=== PATIENT | female | born 1970 | race Caucasian/White ===

== ENCOUNTER 2016-04-23 08:21 | Emergency (ER) | payer SELFPAY ==
[~2016-04-23] VITALS: Ht 160 cm; Wt 124.0 kg
[~2016-04-23 08:21] MED LIST: BUPR100CR PO; CIPRHC10A RIGHT EAR; GLUCTAB PO; LEVO100T4 PO; LISI-360 PO; VITA400C58 PO; VITA500T83 PO; ZOFR4TAB3 SL
[2016-04-23 08:32] VITALS: BP 134/91; PULSE 86; RESP 18; TEMP 98.6; O2SAT 96
[2016-04-23 08:40] VITALS: BP 159/95; PULSE 83; RESP 18; O2SAT 96
[2016-04-23] MEDS ORDERED: LEVO100T5 PO (08:54)
[2016-04-23] MEDS ORDERED: VITA10003 PO (08:54)
[2016-04-23] MEDS ORDERED: GABA300C5 PO (08:54)
[2016-04-23] MEDS ORDERED: METF500T PO (08:54)
[2016-04-23] MEDS ORDERED: AMIT50TA3 PO (08:54)
[2016-04-23] MEDS ORDERED: LISI-515 PO (08:54)
[2016-04-23] MEDS ORDERED: LIDOCAINE HCL 1% 50 ML VIAL INFIL ONE (09:00)
--- NOTE | 2016-04-23 09:06 | PD ---
HPI Chief Complaint: Cold / Flu Symptoms Time Seen by Provider: 08:42 Travel History International Travel<30 days: No Contact w/Intl Traveler<30days: No Traveled to known affect area: No History of Present Illness HPI 45-year-old female with history of diabetes, presents to the ER today with 1 week history of cough, sore throat, congestion, body aches, nausea, and diarrhea. She states that her parents had similar symptoms as well. She has not had a fever Now. In Addition, She Has Noticed Swelling around Her Left Pinky Finger Nail Area. She States This Started for Several Days. She Denies Any Other Issues. Modifying Factors: None Associated Signs & Symptoms: Cough, cold symptoms, congestion, body aches, nausea, diarrhea. Left Pinky finger swelling. Risk Factors: Sick contacts PFSH Past Medical History Depression: Yes Cardiovascular Problems: Yes High Cholesterol: Yes Diabetes: Yes Patient Takes Glucophage: Yes Hypertension: Yes Thyroid Disease: Yes Influenza Vaccination: No ?: Not LMP: 04/04/16 Ectopic : Yes Past Surgical History Gynecologic Surgery: Yes (CERVICAL POLYPS REMOVED) Social History Alcohol Use: No Tobacco Use: Yes (1ppd) Substance Use: No Allergies-Medications (Allergen,Severity, Reaction): Coded Allergies: No Known Allergies (Unverified , 10/20/15) Reported Meds & Prescriptions Reported Meds & Active Scripts Active Reported Amitriptyline (Amitriptyline HCl) 50 Mg Tab 50 Mg PO HS Vitamin D-3 (Cholecalciferol) 1,000 Unit Tab 1,000 Units PO DAILY Levothyroxine (Levothyroxine Sodium) 100 Mcg Tab 100 Mcg PO DAILY Gabapentin 300 Mg Cap 300 Mg PO TID Lisinopril 20 Mg Tab 20 Mg PO DAILY Metformin (Metformin HCl) 500 Mg Tab 500 Mg PO BIDPC With meals Review of Systems Except as stated in HPI: all other systems reviewed are Neg Physical Exam Narrative GENERAL: Well-nourished, well-developed middle age white female patient in no acute distress. SKIN: Warm and dry. HEAD: Normocephalic. EYES: No scleral icterus. No injection or drainage. ENT: Mucosa pink and moist. Mild erythema with no exudates. No uvular edema. No uvular, palatal, or tonsillar deviation. Airway patent. NECK: Supple, trachea midline. CARDIOVASCULAR: Regular rate and rhythm without murmurs, gallops, or rubs. RESPIRATORY: Breath sounds equal bilaterally. No accessory muscle use. GASTROINTESTINAL: Abdomen soft, non-tender, nondistended. MUSCULOSKELETAL: No cyanosis, or edema. BACK: Nontender without obvious deformity. No CVA tenderness. Left fifth digit: Mild edema and erythema notable next to the nail of the fingertip, tender to palpation. Questionable underlying fluctuance. Data Data Last Documented VS Vital Signs Date Time Temp Pulse Resp B/P Pulse Ox O2 Delivery O2 Flow Rate FiO2 04/23/16 08:54 Room Air 04/23/16 08:40 83 18 159/95 96 04/23/16 08:32 98.6 Orders Influenzae A/B Antigen (04/23/16 08:42) Lidocaine 1% Inj (50 Ml) (Xylocaine 1% I (04/23/16 09:00) Chest, Single Ap (04/23/16 09:13) MDM Medical Decision Making Medical Screen Exam Complete: Yes Emergency Medical Condition: Yes Medical Record Reviewed: Yes Interpretation(s) CHEST X-RAY: No infiltrate, pneumothorax or mediastinal widening. Differential Diagnosis URI versus bronchitis versus influenza versus pneumonia, paronychial abscess versus cellulitis Narrative Course Flu test is negative. Chest x-ray did not show any signs of acute pneumonia. I suspect that the patient has an underlying viral syndrome. IV was done on her fifth digit without significant pus. My plan would be to put her on antibiotics for this issue. In addition, we'll give her symptomatic relief for her viral syndrome. Return for any worsening in symptoms as needed. The plan was discussed with her and she states understanding. Diagnosis Primary Impression: CELLULITIS OF LEFT FINGER Additional Impression: Viral syndrome Med/Other Pt SpecificInfo: Prescription(s) given Scripts Benzonatate (Tessalon Perles)100 Mg [id number] Mg PO TID PRN (COUGH) #15 CAP Ref 0 Prov:Angelica Shepherd MD 04/23/16 Ibuprofen (Motrin Ib)200 Mg [id number] Mg PO Q6H PRN (PAIN SCALE 1 TO 10) #20 TAB Ref 0 Prov:Angelica Shepherd MD 04/23/16 Cephalexin (Keflex)500 Mg [id number] Mg PO Q6H 7 Days Ref 0 Prov:Angelica Shepherd MD 04/23/16 Disposition: 01 DISCHARGE HOME Condition: Stable Angelica Shepherd MD Apr 23, 2016 09:06
--- NOTE | 2016-04-23 09:49 | RADHPO ---
EXAM DATE/TIME: 04/23/2016 09:29 [facility] COMPARISON: No previous studies available for comparison. INDICATIONS : Cough, fever, body aches. MEDICAL HISTORY : Hypertension. Diabetes mellitus type II. SURGICAL HISTORY : None. ENCOUNTER: Initial ACUITY: 1 week PAIN SCORE: 0/10 LOCATION: Bilateral chest FINDINGS: A single view of the chest demonstrates the lungs to be symmetrically aerated without evidence of mas s, infiltrate or effusion. The cardiomediastinal contours are unremarkable. Osseous structures are intact. CONCLUSION: No acute disease. Dl Oliva MD on April 23, 2016 at 9:48 Board Certified Radiologist. This report was verified electronically.
[2016-04-23] MEDS ORDERED: BENZ100 PO (09:55)
[2016-04-23] MEDS ORDERED: CEPH-460 PO (09:55)
[2016-04-23] MEDS ORDERED: MOTR200T4 PO (09:55)
[2016-04-23 10:18] VITALS: BP 128/88
== END 2016-04-23 10:19 | disposition home or self-care (01) ==
LOC: PHED 08:21
DX: L03.012 Cellulitis of left finger (principal); B34.9 Viral infection, unspecified
CPT/HCPCS: 10060; 71010; 87804

== ENCOUNTER 2016-11-22 13:40 | Emergency (ER) | payer SELFPAY ==
[~2016-11-22] VITALS: Ht 160 cm; Wt 116.0 kg
[~2016-11-22 13:40] MED LIST changes: +AMIT50TA3 PO; +BENZ100 PO; -BUPR100CR PO; +CEPH-460 PO; -CIPRHC10A RIGHT EAR; +GABA300C5 PO; -GLUCTAB PO; -LEVO100T4 PO; +LEVO100T5 PO; -LISI-360 PO; +LISI-515 PO; +METF500T PO; +MOTR200T4 PO; +VITA10003 PO; -VITA400C58 PO; -VITA500T83 PO; -ZOFR4TAB3 SL
[2016-11-22 13:52] VITALS: BP 135/63; PULSE 92; RESP 14; TEMP 98.2; O2SAT 96
[2016-11-22] MEDS ORDERED: PROCHLORPERAZINE INJ 10 MG/2 ML VIAL IV PUSH ONE (15:30)
[2016-11-22] MEDS ORDERED: SODIUM CHLOR 0.9% 1000 ML INJ 1,000 ML IV ONE (15:30)
[2016-11-22] MEDS ORDERED: KETOROLAC TROMETHAMINE 30 MG/ML (IVP) VIAL IV PUSH ONE (15:30)
[2016-11-22] MEDS ORDERED: diphenhydrAMINE HCL 50 MG/ML VIAL IV PUSH ONE (15:30)
[2016-11-22 15:57] LABS: AUTOMATED NEUTROPHIL # 6.2 TH/MM3 (1.8-7.7); BASOPHIL % 0.3 % (0.0-2.0); EOSINOPHIL # 0.3 TH/MM3 (0-0.4); EOSINOPHIL % 2.5 % (0.0-4.0); HEMATOCRIT 46.1 % (35.0-46.0); HEMO FLAGS DIFF FINAL; LYMPH % 31.9 % (9.0-44.0); LYMPHOCYTE # 3.4 TH/MM3 (1.0-4.8); MEAN CELL VOLUME 95.8 FL (80.0-100.0); MEAN CORPUSCULAR HEMOGLOBIN 31.8 PG (27.0-34.0); MEAN CORPUSCULAR HGB CONC 33.1 % (32.0-36.0); MONO % 6.7 % (0.0-8.0); NEUT % 58.6 % (16.0-70.0); PLATELET COUNT 261 TH/MM3 (150-450); RED BLOOD COUNT 4.82 MIL/MM3 (4.00-5.30); WHITE BLOOD COUNT 10.6 TH/MM3 (4.0-11.0)
[2016-11-22] MEDS ORDERED: NAPR500T PO (16:06)
[2016-11-22 16:07] LABS: CHLORIDE 106 MEQ/L (98-107); POTASSIUM 3.8 MEQ/L (3.5-5.1); SODIUM (NA) 140 MEQ/L (136-145)
--- NOTE | 2016-11-22 16:07 | PD ---
HPI Chief Complaint: Headache Time Seen by Provider: 15:23 Travel History International Travel<30 days: No Contact w/Intl Traveler<30days: No Traveled to known affect area: No History of Present Illness HPI This is a 45-year-old female who presents to the emergency department with 2 weeks of headache, intermittent, nagging, affecting the base of her neck and her forehead associated with generalized malaise, body aches and fatigue. She says she's had migraines in the past but her headaches are usually last this long. She feels generally nauseous. She hasn't vomited. She denies any difficulty walking or talking. She denies any fevers or chills. She has had some dysuria which she's noticed for several weeks. She doesn't remember the exact time of onset of the headache and says it came on gradually. PFSH Past Medical History Depression: Yes Cardiovascular Problems: Yes High Cholesterol: Yes Diabetes: Yes Patient Takes Glucophage: Yes Hypertension: Yes Thyroid Disease: Yes ?: Unknown LMP: 09/2016 Ectopic : Yes Past Surgical History Gynecologic Surgery: Yes (CERVICAL POLYPS REMOVED) Social History Alcohol Use: No Tobacco Use: Yes (1ppd) Substance Use: No Allergies-Medications (Allergen,Severity, Reaction): Coded Allergies: No Known Allergies (Unverified , 10/20/15) Reported Meds & Prescriptions Reported Meds & Active Scripts Active Reported Levothyroxine (Levothyroxine Sodium) 100 Mcg Tab 100 Mcg PO DAILY Gabapentin 300 Mg Cap 300 Mg PO TID PRN Lisinopril 20 Mg Tab 20 Mg PO DAILY Metformin (Metformin HCl) 500 Mg Tab 500 Mg PO BIDPC With meals Review of Systems Except as stated in HPI: all other systems reviewed are Neg Physical Exam Narrative GENERAL:Well appearing, no acute distress SKIN: Focused skin assessment warm and dry. HEAD: Atraumatic. Normocephalic. EYES: Pupils equal and round. No injection or drainage. ENT: Moist mucous membranes NECK: Trachea midline. CARDIOVASCULAR: Regular rate and rhythm. No murmur appreciated. RESPIRATORY: Clear to auscultation. Breath sounds equal bilaterally. GASTROINTESTINAL: Abdomen soft, non-tender, nondistended. MUSCULOSKELETAL: No obvious deformities. NEUROLOGICAL: Awake and alert. No obvious cranial nerve deficits. No dysarthria or aphasia. No upper or lower extremity drift. No upper extremity ataxia. Visual mckinney intact. PSYCHIATRIC: Appropriate mood and affect; insight and judgment normal. Data Data Last Documented VS Vital Signs Date Time Temp Pulse Resp B/P (MAP) Pulse Ox O2 Delivery O2 Flow Rate FiO2 11/22/16 13:52 98.2 92 14 135/63 (87) 96 Room Air Orders Orders Complete Blood Count With Diff (11/22/16 15:29) Comprehensive Metabolic Panel (11/22/16 15:29) Urinalysis - C+S If Indicated (11/22/16 15:29) Ed Urine Pregnancytest Poc (11/22/16 15:29) Sodium Chlor 0.9% 1000 Ml Inj (Ns 1000 M (11/22/16 15:30) Ketorolac Inj (Toradol Inj) (11/22/16 15:30) Prochlorperazine Inj (Compazine Inj) (11/22/16 15:30) Diphenhydramine Inj (Benadryl Inj) (11/22/16 15:30) Labs Laboratory Tests Test 11/22/16 15:45 White Blood Count 10.6 TH/MM3 Red Blood Count 4.82 MIL/MM3 Hemoglobin 15.3 GM/DL Hematocrit 46.1 % Mean Corpuscular Volume 95.8 FL Mean Corpuscular Hemoglobin 31.8 PG Mean Corpuscular Hemoglobin Concent 33.1 % Red Cell Distribution Width 14.0 % Platelet Count 261 TH/MM3 Mean Platelet Volume 8.2 FL Neutrophils (%) (Auto) 58.6 % Lymphocytes (%) (Auto) 31.9 % Monocytes (%) (Auto) 6.7 % Eosinophils (%) (Auto) 2.5 % Basophils (%) (Auto) 0.3 % Neutrophils # (Auto) 6.2 TH/MM3 Lymphocytes # (Auto) 3.4 TH/MM3 Monocytes # (Auto) 0.7 TH/MM3 Eosinophils # (Auto) 0.3 TH/MM3 Basophils # (Auto) 0.0 TH/MM3 CBC Comment DIFF FINAL Differential Comment MDM Medical Decision Making Medical Screen Exam Complete: Yes Emergency Medical Condition: Yes Interpretation(s) Afebrile, mild tachycardia, normotensive No leukocytosis Differential Diagnosis Migraine, tension headache, viral syndrome, urinary tract infection Narrative Course This is a 45-year-old female who presents to the emergency department with multiple nonspecific complaints including headache, malaise and body aches. She has a completely normal neurologic exam. Her headache was gradual in onset and has been going on for 2 weeks. I doubt a subarachnoid hemorrhage. I don't think imaging in the emergency department would be high yield. Labs will be obtained, patient was given IV hydration and a urinalysis will be obtained. I suspect that the patient has an underlying viral syndrome causing her multiple constitutional complaints. I think she can be discharged with symptomatic management. Diagnosis Primary Impression: Headache Qualified Codes: R51 - Headache Patient Instructions: General Instructions Additional Instructions: If you develop severe worsening headache, persistent vomiting, numbness, weakness, difficulty walking or difficulty talking return to the emergency department immediately. Sometimes in the emergency department we did not identify the cause of headaches. If you continued to have headaches it is very important that you followup with your primary care physician as you may need further testing with an MRI. Med/Other Pt SpecificInfo: Prescription(s) given Scripts Naproxen (Naproxen) 500 Mg Tab 500 MG PO BID Y for HEADACHE, #10 TAB 0 Refills Prov: Juanita Guo MD 11/22/16 Disposition: 01 DISCHARGE HOME Condition: Stable Juanita Guo MD Nov 22, 2016 16:07
[2016-11-22 16:11] LABS: ANION GAP 8 MEQ/L (5-15); BICARBONATE 25.9 MEQ/L (21.0-32.0); BLOOD UREA NITROGEN 13 MG/DL (7-18)
[2016-11-22 16:14] LABS: ALT (GPT) 27 U/L (10-53); AST (GOT) 23 U/L (15-37); GLOMERULAR FILTRATION RATE 84 ML/MIN (>89)
[2016-11-22 16:15] LABS: TOTAL BILIRUBIN ADULT 0.4 MG/DL (0.2-1.0)
[2016-11-22 16:17] LABS: ALKALINE PHOSPHATASE 67 U/L (45-117)
[2016-11-22 16:19] LABS: BLOOD, URINE NEG (NEG); GLUCOSE,URINE NEG (NEG); KETONE, URINE NEG (NEG); NITRITE,URINE NEG (NEG); PH, URINE 5.5 (5.0-8.5)
[2016-11-22 16:29] LABS: METHOD OF COLLECTION CLEAN CATCH; URINE COLOR YELLOW (YELLW/STRAW)
[2016-11-22 16:30] LABS: BACTERIA, URINE FEW /hpf; COMMENT (UR) CULT NOT INDICATED; CULTURE IF INDICATED CULT NOT INDICATED; RBC, URINE 0-3 /hpf (0-3); SQUAMOUS EPITHELIAL CELL URINE > 8 /hpf (0-5); WBC, URINE 0-2 /hpf (0-5)
[2016-11-22] MEDS ORDERED: ZOFR4TAB3 SL (16:38)
== END 2016-11-22 17:43 | disposition home or self-care (01) ==
LOC: PHED 13:40
DX: R51 Headache (principal); E11.9 Type 2 diabetes mellitus without complications; I10 Essential (primary) hypertension; E78.00 Pure hypercholesterolemia, unspecified
CPT/HCPCS: 80053; 81001; 84703; 85025; 96361; 96374; 96375; 99284; J0780; J1200; J1885; J7030